=== PATIENT | female | born 1945 | race Caucasian/White ===

== ENCOUNTER → 2017-10-20 | Outpatient (CLI) | payer MEDICARE, OTHER ==
[~2017-10-20] MED LIST: ALBUAER3 INH; ASPI81TA23 PO; CALC1TAB12 PO; CENTCHW4 CHEW; CIPR-9 PO; COLA100C5 PO; CYCL10TA PO; DENO60P SQ; FLUT50SP EACH NARE; FLUT55AE INH; LOSA50TA PO; META48.53 PO; MONT10TA4 PO; OMEP20TA93 PO; PHEN60SU RECTAL; UMEC1AER INH; VALA1TAB PO; VITA1000 PO
[2017-10-20 13:20] LABS: AUTOMATED NEUTROPHIL # 5.7 TH/MM3 (1.8-7.7); BASOPHIL # 0.1 TH/MM3 (0-0.2); BASOPHIL % 0.9 % (0.0-2.0); EOSINOPHIL % 0.3 % (0.0-4.0); HEMATOCRIT 43.9 % (35.0-46.0); HEMOGLOBIN 15.2 GM/DL (11.6-15.3); LYMPH % 21.7 % (9.0-44.0); LYMPHOCYTE # 1.8 TH/MM3 (1.0-4.8); MEAN CELL VOLUME 99.5 FL (80.0-100.0); MEAN CORPUSCULAR HEMOGLOBIN 34.4 PG (27.0-34.0); MEAN CORPUSCULAR HGB CONC 34.5 % (32.0-36.0); MEAN PLATELET VOLUME 8.3 FL (7.0-11.0); MONO % 9.1 % (0.0-8.0); MONOCYTE # 0.8 TH/MM3 (0-0.9); PLATELET COUNT 321 TH/MM3 (150-450); RED BLOOD COUNT 4.41 MIL/MM3 (4.00-5.30); RED CELL DISTRIBUTION WIDTH 13.2 % (11.6-17.2); WHITE BLOOD COUNT 8.4 TH/MM3 (4.0-11.0)
[2017-10-20 13:28] LABS: PROTHROMBIN TIME - PATIENT 10.2 SEC (9.8-11.6)
[2017-10-20 13:38] LABS: ALT (GPT) 25 U/L (10-53)
[2017-10-20 13:40] LABS: ALKALINE PHOSPHATASE 120 U/L (45-117); TOTAL BILIRUBIN ADULT 0.6 MG/DL (0.2-1.0); TOTAL PROTEIN 7.7 GM/DL (6.4-8.2)
[2017-10-20 13:58] LABS: ALBUMIN 3.8 GM/DL (3.4-5.0); AST (GOT) 40 U/L (15-37); BICARBONATE 24.3 MEQ/L (21.0-32.0); BLOOD UREA NITROGEN 3 MG/DL (7-18); CALCIUM 9.6 MG/DL (8.5-10.1); CHLORIDE 93 MEQ/L (98-107); CREATININE 0.54 MG/DL (0.50-1.00); GLOMERULAR FILTRATION RATE 112 ML/MIN (>89); GLUCOSE,FASTING 90 MG/DL (74-99); SODIUM (NA) 125 MEQ/L (136-145)
--- NOTE | 2017-10-20 14:03 | RADRPT ---
EXAM DATE/TIME: 10/20/2017 13:12 [facility] COMPARISON: No previous studies available for comparison. INDICATIONS : Evaluate for pneumonia, pneumothorax, or communicable disease. MEDICAL HISTORY : Chronic obstructive pulmonary disease. Carcinoma, breast. Hypertension. SURGICAL HISTORY : Bilateral lumpectomies. Right shoulder. Right hip. Bilateral ovarian cyst. ENCOUNTER: Initial ACUITY: 1 day PAIN SCORE: 0/10 LOCATION: chest FINDINGS: PA and lateral views of the chest. Multiple calcified nodular densities clustered in the left midlung . 9 mm nodular density in the right lower lung. No evidence of pulmonary consolidation. No pleural ef fusion or pneumothorax. Cardiomediastinal silhouette within normal limits.. Cardiomediastinal silhoue tte within normal limits. No evidence of pleural effusion or pneumothorax. CONCLUSION: 1. 9 mm indeterminate nodular density right lower lung. Recommend followup noncontrast chest CT. 2. Clustered nodular calcification in the left midlung and calcified nodule in the right lower lung l ikely are present old granulomatous disease. Ronn Ritter MD on October 20, 2017 at 13:57 Board Certified Radiologist. This report was verified electronically.
[2017-10-20 14:10] LABS: BANDS 1 % (0-6); LYMPHOCYTES 13 % (9-44); MONOCYTES 9 % (0-8); NEUTROPHIL # MANUAL DIFF 6.6 TH/MM3 (1.8-7.7); POLYS (SEG NEUTROPHILS) 77 % (16-70)
--- NOTE | 2017-10-21 10:27 | EKG ---
Date Performed: 10/20/2017 Time Performed: 12:16:38 PTAGE: 71 years EKG: Sinus rhythm Possible septal infarct - age undetermined Abnormal ECG NO PREVIOUS TRACING DOCTOR: Terrell Tanner Interpretating Date/Time 10/21/2017 10:26:05
== END ==
LOC: CPRE 11:43
PROVIDERS: ATTEND Obstetrics & Gynecology Gynecologic Oncology
DX: Z01.810 Encounter for preprocedural cardiovascular examination (principal); Z01.811 Encounter for preprocedural respiratory examination; Z01.812 Encounter for preprocedural laboratory examination; N85.8 Other specified noninflammatory disorders of uterus; R19.09 Other intra-abdominal and pelvic swelling, mass and lump; R94.31 Abnormal electrocardiogram [ECG] [EKG]
CPT/HCPCS: 36415; 71046; 80053; 85007; 85027; 85610; 85730; 86304; 93005

== ENCOUNTER → 2017-11-22 | Day surgery (SDC) | payer MEDICARE, OTHER ==
[~2017-11-22] VITALS: Ht 171.4 cm; Wt 51.4 kg
[~2017-11-22] MED LIST changes: +ACETAMINOPHEN 1000 MG/100 ML 100 ML IV ONE; +CHLORHEXIDINE GLUCONATE 2 % 1 PACK (2 CLOTHS) TOPICAL PRN; +DEXAMETHASONE SOD PHOS 4 MG/ML VIAL IV ONE; +DO NOT ADM ANY ANTICOAGULANT DRUGS PRN; +KETOROLAC TROMETHAMINE 30 MG/ML (IVP) VIAL IV PUSH ONE; +KETOROLAC TROMETHAMINE 30 MG/ML (IVP) VIAL IV PUSH PRN; +LACTATED RINGER'S 1000 ML IV PRN; +LIDOCAINE 1%/EPINEPHrine 1:100,000 SOLN 30 ML VIAL ONE; +LIDOCAINE HCL 1% PF 5 ML SYRINGE OTHER ONE; +METOPROLOL TARTRATE 25 MG TAB PO PRN; +ONDANSETRON HCL 4 MG/2 ML VIAL IV ONE; +POVIDONE IODINE 5% (ANTISEPSIS KIT) 4 APPLICATIONS EACH NARE PRN; +PROPOFOL 200 MG/20 ML AMP IV ONE; +SILVER NITR/POTASSIUM NITRATE APPLICATORS ONE; +SODIUM CHLORID 0.9% 500 ML IV PRN; +ePHEDrine/NS 25 MG/5 ML SYRINGE IV ONE; +oxyCODONE/ACETAMINOPHEN 5 MG/325 MG TAB PO PRN
--- NOTE | 2017-11-22 14:29 | MP ---
cc: Agnes Lakhani MD, Kathleen B MD Grech,Martine Gutierrez DATE OF OPERATION: 11/22/2017 PREOPERATIVE DIAGNOSIS: Fluid in endometrial cavity, cervical stenosis. SECONDARY DIAGNOSIS: Cystic pelvic mass. POSTOPERATIVE DIAGNOSIS: Fluid in endometrial cavity, cervical stenosis plus prolapsed irritated anal mucosa. PROCEDURE: 1. Examination under anesthesia. 2. Anal biopsy. SURGEON: Agnes Lakhani MD CIRCUS TRAIN SUPERVISOR: Nigel first beater ANESTHESIA: Laryngeal mask. ESTIMATED BLOOD LOSS: 10 mL. HISTORY: This is a 71-year-old female who, in the process of undergoing evaluation, was found to have a 6-7 cm cystic fluid collection in the pelvis. Ultrasound also showed not an enlarged uterus but some fluid within the endometrial stripe. Previous examiner reported cervical stenosis. She was counseled regarding these findings, possible explanations. We know she has had a prior cervix conization. She was in favor or attempted dilation and curettage of the uterus and she favors radiographic-directed aspiration of the cystic mass and prefers that over surgical exploration, which I think is quite reasonable given her complex surgical and inflammatory history. She is seen again in preop holding area with her where the findings are again reviewed, the recommendations are made and questions are asked and answered. She expressed good understanding and agrees to move forward with the procedure. FINDINGS: On exam under anesthesia, there are no appreciably enlarged inguinal or femoral lymph nodes. External genitalia without mass or lesion. The vaginal mucosa is smooth. There are moderate atrophic changes. The anatomy is such that it appears as though she has had a hysterectomy in that there is no cervical tissue visible. There is no cervical os visible. There is a fold of mucosa at the vaginal apex and in the right corner. Careful palpation, including rectovaginal exam, it is still difficult to clearly feel the cervix, feel the uterus, both of which are quite small. There is definitely no parametrial nodularity, no mass, solid nodularity, and careful inspection and exam failed to clearly identify the site of the cervix. On external exam, there is prolapsed anal mucosa, especially at the 12 o'clock position. It is quite erythematous and a little bit thickened. It could well be prolapsed hemorrhoid or chronic inflamed hemorrhoid, but it had enough of an unusual appearance that I wanted to exclude neoplasm. PROCEDURE: She was taken to the operating room, placed in dorsal lithotomy position. After laryngeal mask anesthesia was administered, timeout was undertaken. She was identified by sight recognition and hospital ID brateodoro. The proposed procedure was reviewed and confirmed. Exam under anesthesia was performed with findings as described above. She was prepped and draped in sterile fashion. In and out catheterization to drain the bladder was performed. Careful visual inspection and palpable exam of the pelvic anatomy with findings as described above. I could not comfortably identify the cervix. Furthermore, my concern about any neoplastic process was significantly reduced given the very small mobile residual cervix and uterus that could remain. Clearly, there was no cervix visible, no clearcut area to consider cervical os. It was felt that morbidity and potential injury to the bowel or bladder may exceed any potential benefit, so no further dissection was attempted. The anal mucosa was injected with approximately 81 mL of lidocaine and then a scalpel was used to remove a small wedge-shaped biopsy from the area that was irritated at 12 o'clock position. This was reapproximated and rendered hemostatic with interrupted 3-0 Vicryl sutures. Sites were completely hemostatic. Change of sterile gloves was undertaken. Pelvic exam confirmed no remaining foreign objects in the vagina or anal region. Preliminary final counts were correct. She was returned to dorsal supine position and was pending reversal of anesthesia. I left the operating room to precede her to the postanesthesia care unit. MD VITOR Brown/CHAU , 01:54 PM , 02:28 PM
[2017-11-22 14:51] VITALS: BP 133/73; PULSE 62; RESP 16; TEMP 97.4; O2SAT 100
== END | disposition home or self-care (01) ==
LOC: HSDC 10:46
PROVIDERS: ATTEND Obstetrics & Gynecology Gynecologic Oncology
DX: R19.00 Intra-abdominal and pelvic swelling, mass and lump, unspecified site (principal); N88.2 Stricture and stenosis of cervix uteri; K62.2 Anal prolapse; J44.9 Chronic obstructive pulmonary disease, unspecified; K57.90 Diverticulosis of intestine, part unspecified, without perforation or abscess without bleeding; M81.0 Age-related osteoporosis without current pathological fracture; Z85.3 Personal history of malignant neoplasm of breast
CPT/HCPCS: 00902; 45100; 86850; 86900; 86901; 88305; J0131; J1100; J1885; J2405; J3010; 88304

== ENCOUNTER 2017-11-25 08:47 | Day surgery (SDC) | payer MEDICARE, OTHER ==
[~2017-11-25] VITALS: Ht 170.2 cm; Wt 51.4 kg
[~2017-11-25 08:47] MED LIST changes: -ACETAMINOPHEN 1000 MG/100 ML 100 ML IV ONE; -CHLORHEXIDINE GLUCONATE 2 % 1 PACK (2 CLOTHS) TOPICAL PRN; -CIPR-9 PO; -DEXAMETHASONE SOD PHOS 4 MG/ML VIAL IV ONE; -DO NOT ADM ANY ANTICOAGULANT DRUGS PRN; -KETOROLAC TROMETHAMINE 30 MG/ML (IVP) VIAL IV PUSH ONE; -KETOROLAC TROMETHAMINE 30 MG/ML (IVP) VIAL IV PUSH PRN; -LACTATED RINGER'S 1000 ML IV PRN; -LIDOCAINE 1%/EPINEPHrine 1:100,000 SOLN 30 ML VIAL ONE; -LIDOCAINE HCL 1% PF 5 ML SYRINGE OTHER ONE; -METOPROLOL TARTRATE 25 MG TAB PO PRN; -ONDANSETRON HCL 4 MG/2 ML VIAL IV ONE; -POVIDONE IODINE 5% (ANTISEPSIS KIT) 4 APPLICATIONS EACH NARE PRN; -PROPOFOL 200 MG/20 ML AMP IV ONE; -SILVER NITR/POTASSIUM NITRATE APPLICATORS ONE; -SODIUM CHLORID 0.9% 500 ML IV PRN; -VALA1TAB PO; -ePHEDrine/NS 25 MG/5 ML SYRINGE IV ONE; -oxyCODONE/ACETAMINOPHEN 5 MG/325 MG TAB PO PRN
[2017-11-25 09:16] VITALS: BP 126/71; PULSE 71; RESP 18; TEMP 98; O2SAT 97
[2017-11-25] MEDS ORDERED: SODIUM CHLOR 0.9% 1000 ML IV SCH (09:30)
[2017-11-25] MEDS ORDERED: LIDOCAINE HCL 1% 20 ML VIAL ONE (10:09)
[2017-11-25] MEDS ORDERED: fentaNYL CITRATE 250 MCG/5 ML AMP ONE (10:19)
[2017-11-25] MEDS ORDERED: MIDAZOLAM HCL 5 MG/5 ML VIAL ONE (10:19)
[2017-11-25 11:15] VITALS: BP 122/70; PULSE 67; RESP 17; O2SAT 95
--- NOTE | 2017-11-25 11:39 | RADRPT ---
EXAM DATE/TIME: 11/25/2017 10:37 [facility] COMPARISON: No previous studies available for comparison. INDICATIONS : Pelvic cyst. ORAL CONTRAST: No oral contrast ingested. RADIATION DOSE: 10.66 CTDIvol (mGy) MEDICAL HISTORY : Carcinoma, breast. SURGICAL HISTORY : Mastectomy, bilateral. ENCOUNTER: Initial ACUITY: 1 day PAIN SCALE: 0/10 LOCATION: Left pelvis TECHNIQUE: Volumetric scanning of the pelvis was performed. Using automated exposure control and adjustment of the mA and/or kV according to patient size, radiation dose was kept as low as reasonably achievable t o obtain optimal diagnostic quality images. DICOM format image data is available electronically for review and comparison. FINDINGS: The temporal made in both the prone and supine position to obtain it window for adequate drainage of the cystic mass in the left adnexa region. There is no window for percutaneous access. Cyst measure s 5.3 cm. CONCLUSION: Unable to obtain percutaneous access for left pelvic cyst drainage using either prone or supine approach. Jose Hickman MD FACR on November 25, 2017 at 11:36 Board Certified Radiologist. This report was verified electronically.
== END 2017-11-25 11:30 | disposition home or self-care (01) ==
LOC: HRAD 08:47 → HRIP 08:48 → HRAD 11:30
PROVIDERS: ATTEND Obstetrics & Gynecology Gynecologic Oncology
DX: N94.89 Other specified conditions associated with female genital organs and menstrual cycle (principal); Z85.3 Personal history of malignant neoplasm of breast; Z90.13 Acquired absence of bilateral breasts and nipples; I10 Essential (primary) hypertension
CPT/HCPCS: 72192; J2250; J3010; J7030